=== PATIENT | male | born 1945 | race Asian ===

== ENCOUNTER 2019-06-30 21:30 | Inpatient (IN) | payer MEDICARE, MEDICAID ==
[~2019-06-30] VITALS: Ht 172.7 cm; Wt 66.7 kg
[2019-06-30] MEDS ORDERED: ONDANSETRON HCL 4MG/2ML INJ IV STA (22:48)
[2019-06-30] MEDS ORDERED: SODIUM CHLORIDE 0.9% 1,000 ML IV ONE (22:48)
[2019-06-30 22:59] LABS: INR 2.7; PROTHROMBIN TIME 26.9 sec (9.6-11.0)
[2019-06-30 23:00] LABS: BASOPHILS % 0.4 % (0.0-2.0); CHLORIDE 108 mEq/L (98-107); EOSINOPHILS % 6.2 % (0.0-5.0); HEMATOCRIT. 47.6 % (42.0-52.0); HEMOGLOBIN. 16.2 g/dL (14.0-18.0); LYMPHOCYTES % 13.1 % (20.0-50.0); MEAN CORPUSCULAR HEMOGLOBIN 30.6 pg (28.0-32.0); MEAN CORPUSCULAR VOLUME 89.7 fL (80.0-94.0); MEAN PLATELET VOLUME 9.6 fl (7.4-10.4); MONOCYTES % 13.9 % (2.0-8.0); NEUTROPHILS % 66.4 % (40.0-76.0); PLATELET 198 x1000/uL (130-400); RED BLOOD CELL COUNT 5.31 mill/uL (4.7-6.1); RED CELL DISTRIBUTION WIDTH 13.9 % (11.6-14.6)
[2019-07-01] MEDS ORDERED: IOHEXOL-300 100 ML BOTTLE ONE (00:47)
[2019-07-01] MEDS ORDERED: ACETAMINOPHEN 325MG TABLET PO PRN (09:45)
[2019-07-01] MEDS: DEXT 5%/0.45% NACL 1000ML 1,000 ML IV SCH ×2 (09:45→20:36)
[2019-07-01 11:00] VITALS: BP 137/83
[2019-07-01 11:03] LABS: HEMATOCRIT 44.2 % (42.0-52.0)
[2019-07-01 12:00] VITALS: BP 137/83
[2019-07-01] MEDS ORDERED: PHYTONADIONE 10MG/ML AMP SUBCUT NR (14:45)
[2019-07-01] MEDS ORDERED: WARF-53 MT (15:50)
[2019-07-01] MEDS ORDERED: DIGO125T82 PO (15:50)
[2019-07-01] MEDS ORDERED: ATOR10TA69 MT (15:50)
[2019-07-01] MEDS ORDERED: METO-396 MT (15:50)
[2019-07-01] MEDS ORDERED: TIMO5DRO32 LEFTEYE (15:53)
[2019-07-01 16:00] VITALS: BP 134/81
[2019-07-01] MEDS: PANTOPRAZOLE SODIUM 40 MG/VIAL IV SCH (17:05)
[2019-07-01 20:00] VITALS: BP 139/81
[2019-07-01] MEDS: ONDANSETRON HCL 4MG/2ML INJ IV PRN (20:36)
[2019-07-02] VITALS: BP 123/83
[2019-07-02 04:00] VITALS: BP 136/81
[2019-07-02] MEDS: ONDANSETRON HCL 4MG/2ML INJ IV PRN (04:51)
[2019-07-02 07:53] LABS: BASOPHILS % 0.6 % (0.0-2.0); EOSINOPHILS % 7.5 % (0.0-5.0); HEMATOCRIT. 42.8 % (42.0-52.0); HEMOGLOBIN. 14.7 g/dL (14.0-18.0); MEAN CORPUSCULAR HEMOGLOBIN 30.7 pg (28.0-32.0); MEAN CORPUSCULAR VOLUME 89.6 fL (80.0-94.0); MONOCYTES % 14.7 % (2.0-8.0); NEUTROPHILS % 62.2 % (40.0-76.0); PLATELET 192 x1000/uL (130-400); RED BLOOD CELL COUNT 4.78 mill/uL (4.7-6.1); RED CELL DISTRIBUTION WIDTH 13.8 % (11.6-14.6)
[2019-07-02 07:59] LABS: CHLORIDE 110 mEq/L (98-107)
[2019-07-02 08:34] VITALS: BP 123/78
[2019-07-02] MEDS ORDERED: PHYTONADIONE 10MG/ML AMP SUBCUT NR (09:00)
[2019-07-02] MEDS: PANTOPRAZOLE SODIUM 40 MG/VIAL IV SCH ×2 (09:11→17:27)
[2019-07-02] MEDS ORDERED: DIGOXIN 125MCG TABLET PO NR (11:45)
[2019-07-02] MEDS ORDERED: MORPHINE SULFATE 2 MG/ML CPJ (NOT FOR IM USE) IV NR (11:45)
[2019-07-02 12:00] VITALS: BP 138/78
[2019-07-02] MEDS: DEXT 5%/0.45% NACL 1000ML 1,000 ML IV SCH (12:25)
[2019-07-02 13:51] LABS: INR 2.4; PROTHROMBIN TIME 23.8 sec (9.6-11.0)
[2019-07-02] MEDS ORDERED: DIGO125T82 PO (16:22)
[2019-07-02] MEDS ORDERED: TIMO5DRO32 LEFTEYE (16:22)
[2019-07-02 16:40] VITALS: BP 123/68
[2019-07-02 17:42] VITALS: BP 113/78
[2019-07-02] MEDS ORDERED: WARFARIN SODIUM 5MG TABLET PO SCH (18:00)
[2019-07-02] MEDS ORDERED: METOPROLOL TARTRATE 25MG TABLET PO SCH (21:00)
[2019-07-03] MEDS ORDERED: DIGOXIN 125MCG TABLET PO SCH (18:00)
== END 2019-07-02 18:21 | disposition home or self-care (01) | DRG 253 ==
LOC: ER 23:32 → 7WST 07-01 03:04 → EDBEDREQ 07-01 03:13 → EDBEDREQTM 07-01 03:13 → ENRESERV 07-01 10:16
PROVIDERS: ADMIT Internal Medicine; ATTEND Internal Medicine
DX: K92.2 Gastrointestinal hemorrhage, unspecified (principal); D68.9 Coagulation defect, unspecified; E87.8 Other disorders of electrolyte and fluid balance, not elsewhere classified; R17 Unspecified jaundice; N28.1 Cyst of kidney, acquired; A08.4 Viral intestinal infection, unspecified; D18.03 Hemangioma of intra-abdominal structures; E11.9 Type 2 diabetes mellitus without complications; I10 Essential (primary) hypertension; Z95.2 Presence of prosthetic heart valve; Z79.84 Long term (current) use of oral hypoglycemic drugs
CPT/HCPCS: 36415; 71045; 74177; 80048; 82962; 83605; 85014; 85018; 87045; 87493; 89055; 93005; 93306; 93970; 99285; C9113; J2270; J2405; J3430; J7030; Q9967